=== PATIENT | male | born 1955 ===

== ENCOUNTER 2017-01-26 09:06 | Emergency (ER) | payer MEDICAID ==
[2017-01-26 09:06] VITALS: BMI 26.6
[2017-01-26 09:14] VITALS: BP 117/70; PULSE 75; RESP 18; TEMP 97.9; O2SAT 96
--- NOTE | 2017-01-26 10:16 | ED PDOC ---
HPI: CCC, URI, Sore Throat Time Seen by Provider: 01/26/17 09:31 Chief Complaint (Nursing): ENT Problem History Per: Patient History/Exam Limitations: no limitations Onset/Duration Of Symptoms: Gradual (3 days) Current Symptoms Are (Timing): Still Present Location Of Pain: Ear(s), Throat. denies: Sinus/es, Diffuse Myalgias, Headache Sick Contacts (Context): None Associated Symptoms: Fever, Sore Throat, Cough. denies: Chills, Sputum, Sinus Drainage, Myalgias, Nasal Congestion, Nausea, Vomiting, Diarrhea Ear Symptoms: Bilateral: None, Ear Pain, Ear Fullness Severity: Mild Additional History Per: Patient Additional Complaint(s): cd4 > 500. no travel or sick contacts. Past Medical History Reviewed: Historical Data, Nursing Documentation, Vital Signs Vital Signs: Last Vital Signs Temp 97.9 F 01/26/17 09:13 Pulse 75 01/26/17 09:13 Resp 18 01/26/17 09:13 BP 117/70 01/26/17 09:13 Pulse Ox 96 01/26/17 10:16 - Medical History PMH: Diabetes, Fractures (right leg 20 yrs ago), Gall Bladder Disease (hx gallstones cholecystectomy), HIV Denies: Chronic Kidney Disease - Surgical History Surgical History: Appendectomy, Cholecystectomy, Endoscopy - Family History Family History: States: Unknown Family Hx - Living Arrangements Living Arrangements: With Family - Social History Current smoker - smoking cessation education provided: No Drugs: Denies - Home Medications Home Medications: Ambulatory Orders Medication Instructions Recorded Emtricitabine/Tenofovir [Truvada 1 tab PO DAILY 07/24/14 200 mg-300 mg] Metformin HCl [Glucophage] 500 mg PO BID 07/24/14 Raltegravir Potassium [Isentress] 400 mg PO BID 07/24/14 Oxycodone HCl/Acetaminophen 5 - 325 mg PO Q4 PRN 07/30/14 [Percocet 325 mg-5 mg] Emtricitabine/Tenofovir Diso 1 tab PO DAILY 09/25/14 [Truvada 200 MG-300 MG] Metformin HCl [Glucophage] 500 mg PO TID 09/25/14 Raltegravir Potassium [Isentress] 400 mg PO BID 09/25/14 Naproxen [Naprosyn] 500 mg PO BID #20 tab 03/06/15 Amoxicillin/Clavulanate [Augmentin 1 tab PO BID #20 tab 01/26/17 875 MG-125 MG] Repaglinide [Prandin] 2 mg PO BID 01/26/17 - Allergies Allergies/Adverse Reactions: Allergies Allergy/AdvReac Type Severity Reaction Status Date / Time No Known Allergies Allergy Verified 01/26/17 09:25 Review of Systems ROS Statement: Except As Marked, All Systems Reviewed And Found Negative Constitutional: Negative for: Fever, Chills Eyes: Negative for: Pain ENT: Positive for: Ear Pain, Throat Pain. Negative for: Mouth Pain, Mouth Swelling, Throat Swelling Cardiovascular: Negative for: Chest Pain, Palpitations Respiratory: Positive for: Cough. Negative for: Shortness of Breath, SOB with Exertion, Pleuritic Pain, Sputum, Wheezing Gastrointestinal: Negative for: Nausea, Vomiting, Abdominal Pain, Diarrhea Genitourinary Male: Negative for: Dysuria Musculoskeletal: Negative for: Neck Pain Skin: Negative for: Rash Neurological: Negative for: Weakness, Numbness, Altered Mental Status, Headache , Dizziness Physical Exam - Reviewed Nursing Documentation Reviewed: Yes Vital Signs Reviewed: Yes - Physical Exam Appears: Positive for: Uncomfortable Head Exam: Positive for: ATRAUMATIC, NORMAL INSPECTION, NORMOCEPHALIC Eye Exam: Positive for: Normal appearance, EOMI, PERRL. Negative for: Periorbital swelling, Periorbital tenderness, Conjunctival injection, Scleral icterus ENT: Positive for: Pharynx Is (mmm), TM Is/Are (right tm with mild erythema), Nasal Congestion, Pharyngeal Erythema. Negative for: Tonsillar Exudate, Tonsillar Swelling Neck: Positive for: Normal, Painless ROM, Supple. Negative for: Decreased ROM, Limited ROM, Trachea Midline, Pain On Movement Of Neck Cardiovascular/Chest: Positive for: Regular Rate, Rhythm, Chest Non Tender. Negative for: Edema, Gallop, Murmur, Bradycardia, Tachycardia, Ectopy, Friction Rub, Irregularly Irregular Respiratory: Positive for: Normal Breath Sounds. Negative for: Decreased Breath Sounds, Accessory Muscle Use, Crackles, Rales, Rhonchi, Stridor, Wheezing , Respiratory Distress, Plerual Rub Pulses-Radial (L): 2+ Pulses-Radial (R): 2+ Gastrointestinal/Abdominal: Positive for: Normal Exam, Bowel Sounds, Soft. Negative for: Tenderness Back: Positive for: Normal Inspection. Negative for: L CVA Tenderness, R CVA Tenderness, Vertebral Tenderness, Decreased ROM, Muscle Spasm Extremity: Positive for: Normal ROM. Negative for: Tenderness, Pedal Edema, Calf Tenderness, Capillary Refill, Deformity, Swelling Neurologic/Psych: Positive for: Alert, l d rn II-XII, Oriented, Mood/Affect (calm) , Gait (steady). Negative for: Motor/Sensory Deficits, Aphasia, Facial Droop - ECG O2 Sat by Pulse Oximetry: 96 Pulse Ox Interpretation: Normal - Radiology X-Ray: Interpreted by [facility] X-Ray Interpretation: No Acute Disease - Progress ED Course And Treament: advise augmentin. close f/u in medical clinic. Re-evaluation Time: 10:42 Condition: Improved Disposition - Clinical Impression Clinical Impression: Pharyngitis - Patient ED Disposition Is Patient to be Admitted: No Counseled Patient/Family Regarding: Studies Performed, Diagnosis, Need For Followup, Rx Given - Disposition Referrals: [facility] [place] [Outside] (2 to 3 days) Disposition: Routine/Home Disposition Time: 10:15 Condition: GOOD Prescriptions: Amoxicillin/Clavulanate [Augmentin 875 MG-125 MG] 1 tab PO BID #20 tab Instructions: Pharyngitis (ED) Forms: [employer] (Ukrainian) Print Language: ICELANDIC
[2017-01-26] MEDS ORDERED: Amoxicillin-Clav 875-125 mg Tab PO STA (10:40)
[2017-01-26] MEDS ORDERED: Amoxicillin-Clav 250-125 mg Tab PO ONE (10:57)
[2017-01-26] MEDS ORDERED: Amoxicillin-Clav 875-125 mg Tab PO ONE (10:58)
--- NOTE | 2017-01-26 11:49 | RAD ---
HISTORY: cough COMPARISON: July 24, 2014. TECHNIQUE: Chest PA and lateral FINDINGS: LUNGS: Hyperinflation, manifestations of COPD. No active pulmonary disease. PLEURA: No significant pleural effusion identified. No pneumothorax apparent. CARDIOVASCULAR: No radiographic findings to suggest acute or significant cardiovascular disease. OSSEOUS STRUCTURES: No significant abnormalities. VISUALIZED UPPER ABDOMEN: Normal. OTHER FINDINGS: None. IMPRESSION: No active disease. No significant interval change compared to the prior examination(s). Concordant results with the preliminary interpretation rendered by the emergency department physician procedure.
== END 2017-01-26 11:05 | disposition home or self-care (01) ==
LOC: H.ER 09:06
DX: J02.9 Acute pharyngitis, unspecified (principal); E11.9 Type 2 diabetes mellitus without complications

== ENCOUNTER 2017-04-13 14:15 | Emergency (ER) | payer MEDICAID, OTHER ==
[2017-04-13 14:16] VITALS: BMI 26.6
[2017-04-13 14:29] VITALS: BP 130/90; PULSE 84; RESP 18; TEMP 98.2; O2SAT 99
--- NOTE | 2017-04-13 15:03 | ED PDOC ---
HPI: General Adult Time Seen by Provider: 04/13/17 14:32 Chief Complaint (Nursing): Finger,Hand,&Wrist History Per: Patient Additional Complaint(s): Pt. states for the past 4 weeks he's had a swelling to the R palm. Today he attempted to drain the area but was unsuccessful and was unable to drain any pus. Denies trauma, fever, numbness, tingling. Past Medical History Reviewed: Historical Data, Nursing Documentation, Vital Signs Vital Signs: Last Vital Signs Temp 98.2 F 04/13/17 14:26 Pulse 84 04/13/17 14:26 Resp 18 04/13/17 14:26 BP 130/90 04/13/17 14:26 Pulse Ox 99 04/13/17 15:05 - Medical History PMH: Diabetes, Fractures (right leg 20 yrs ago), Gall Bladder Disease (hx gallstones cholecystectomy), HIV Denies: Chronic Kidney Disease - Surgical History Surgical History: Appendectomy, Cholecystectomy, Endoscopy - Family History Family History: States: No Known Family Hx - Home Medications Home Medications: Ambulatory Orders Medication Instructions Recorded Emtricitabine/Tenofovir [Truvada 1 tab PO DAILY 07/24/14 200 mg-300 mg] Metformin HCl [Glucophage] 500 mg PO BID 07/24/14 Raltegravir Potassium [Isentress] 400 mg PO BID 07/24/14 Oxycodone HCl/Acetaminophen 5 - 325 mg PO Q4 PRN 07/30/14 [Percocet 325 mg-5 mg] Emtricitabine/Tenofovir Diso 1 tab PO DAILY 09/25/14 [Truvada 200 MG-300 MG] Metformin HCl [Glucophage] 500 mg PO TID 09/25/14 Raltegravir Potassium [Isentress] 400 mg PO BID 09/25/14 Naproxen [Naprosyn] 500 mg PO BID #20 tab 03/06/15 Amoxicillin/Clavulanate [Augmentin 1 tab PO BID #20 tab 01/26/17 875 MG-125 MG] Repaglinide [Prandin] 2 mg PO BID 01/26/17 Cephalexin [cephalexin] 500 mg PO Q6 #28 cap 04/13/17 Meloxicam [Mobic] 1 - 2 tab PO DAILY PRN #15 tab 04/13/17 - Allergies Allergies/Adverse Reactions: Allergies Allergy/AdvReac Type Severity Reaction Status Date / Time No Known Allergies Allergy Verified 01/26/17 09:25 Review of Systems ROS Statement: Except As Marked, All Systems Reviewed And Found Negative Physical Exam - Physical Exam Appears: Positive for: Well, Non-toxic, No Acute Distress Skin: Positive for: Normal Color, Warm. Negative for: Rash Pulses-Radial (L): 2+ Pulses-Radial (R): 2+ Extremity: Positive for: Other (mild swelling but no tenderness, erythema, warmth, or break in skin integrity of R 5th MCP on palmar surface; cap refill < 2 seconds of R 5th digit; FROM actively of R 5th digit; no fluctuance or induration; swelling is mobile) Neurologic/Psych: Positive for: Alert, Oriented - ECG O2 Sat by Pulse Oximetry: 99 - Radiology X-Ray: Interpreted by Me (R Hand x-ray) X-Ray Interpretation: No Acute Disease - Progress ED Course And Treament: R hand x-ray: Disposition - Clinical Impression Clinical Impression: Ganglion cyst - Patient ED Disposition Is Patient to be Admitted: No - Disposition Referrals: Patricia Gan MD [Staff Provider] - Disposition: Routine/Home Disposition Time: 15:41 Condition: STABLE Prescriptions: Cephalexin [cephalexin] 500 mg PO Q6 #28 cap Meloxicam [Mobic] 1 - 2 tab PO DAILY PRN #15 tab PRN Reason: Pain Instructions: Cyst (ED) Forms: [employer] (Paraguayan)
--- NOTE | 2017-04-13 15:15 | RAD ---
PROCEDURE: Right Hand Radiographs. HISTORY: swelling COMPARISON: None. FINDINGS: BONES: Normal. No fracture. JOINTS: Normal. No osteoarthritic changes. SOFT TISSUES: Normal. OTHER FINDINGS: None. IMPRESSION: Unremarkable right hand radiographs.
== END 2017-04-13 16:02 | disposition home or self-care (01) ==
LOC: H.ER 14:15
DX: M67.441 Ganglion, right hand (principal)

== ENCOUNTER 2017-07-17 14:22 | Emergency (ER) | payer OTHER ==
[2017-07-17 14:22] VITALS: BMI 26.6
[2017-07-17 14:56] VITALS: BP 118/73; PULSE 78; RESP 18; TEMP 97; O2SAT 97
--- NOTE | 2017-07-17 15:31 | ED PDOC ---
Upper Extremity Pain/Injury Time Seen by Provider: 07/17/17 14:58 Chief Complaint (Nursing): Finger,Hand,&Wrist Chief Complaint (Provider): Finger,Hand,&Wrist History Per: Patient History/Exam Limitations: no limitations Onset/Duration Of Symptoms: Mins (prior to arrival) Current Symptoms Are (Timing): Still Present Additional Complaint(s): 62 year old male with medical history of HIV and diabetes, who presents to the emergemcy department for an evaluation of laceration to left wrist status post applying sheet rock at home prior to arrival. Denied any numbness, weakness or up-to-date tetanus vaccinations. PMD: none provided Past Medical History Reviewed: Historical Data, Nursing Documentation, Vital Signs Vital Signs: Last Vital Signs Temp 97 F L 07/17/17 14:53 Pulse 78 07/17/17 14:53 Resp 18 07/17/17 14:53 BP 118/73 07/17/17 14:53 Pulse Ox 97 07/17/17 14:53 - Medical History PMH: Diabetes, Fractures (right leg 20 yrs ago), Gall Bladder Disease (hx gallstones cholecystectomy), HIV Denies: No Chronic Diseases, Chronic Kidney Disease - Surgical History Surgical History: Appendectomy, Cholecystectomy, Endoscopy Denies: No Surg Hx - Family History Family History: States: Unknown Family Hx - Social History Current smoker - smoking cessation education provided: No Alcohol: Occasional Drugs: Denies - Home Medications Home Medications: Ambulatory Orders Medication Instructions Recorded Emtricitabine/Tenofovir [Truvada 1 tab PO DAILY 07/24/14 200 mg-300 mg] Metformin HCl [Glucophage] 500 mg PO BID 07/24/14 Raltegravir Potassium [Isentress] 400 mg PO BID 07/24/14 Oxycodone HCl/Acetaminophen 5 - 325 mg PO Q4 PRN 07/30/14 [Percocet 325 mg-5 mg] Emtricitabine/Tenofovir Diso 1 tab PO DAILY 09/25/14 [Truvada 200 MG-300 MG] Metformin HCl [Glucophage] 500 mg PO TID 09/25/14 Raltegravir Potassium [Isentress] 400 mg PO BID 09/25/14 Naproxen [Naprosyn] 500 mg PO BID #20 tab 03/06/15 Amoxicillin/Clavulanate [Augmentin 1 tab PO BID #20 tab 01/26/17 875 MG-125 MG] Repaglinide [Prandin] 2 mg PO BID 01/26/17 Cephalexin [cephalexin] 500 mg PO Q6 #28 cap 04/13/17 Meloxicam [Mobic] 1 - 2 tab PO DAILY PRN #15 tab 04/13/17 - Allergies Allergies/Adverse Reactions: Allergies Allergy/AdvReac Type Severity Reaction Status Date / Time No Known Allergies Allergy Verified 01/26/17 09:25 Review of Systems ROS Statement: Except As Marked, All Systems Reviewed And Found Negative Musculoskeletal: Positive for: Other (left wrist laceration) Neurological: Negative for: Weakness (left hand), Numbness (left hand) Physical Exam - Reviewed Nursing Documentation Reviewed: Yes Vital Signs Reviewed: Yes - Physical Exam Appears: Positive for: Well, Non-toxic, No Acute Distress Skin: Positive for: Normal Color, Warm, Dry. Negative for: Rash Pulses-Radial (L): 2+ Pulses-Radial (R): 2+ Extremity: Positive for: Normal ROM (left hand), Capillary Refill (normal), Other (1cm superficial vertical laceration to ulnar aspect of left wrist). Negative for: Tenderness, Swelling Neurologic/Psych: Positive for: Alert (x3), java user interface developer II-XII (intact), Oriented. Negative for: Motor/Sensory Deficits - ECG O2 Sat by Pulse Oximetry: 97 (RA) Pulse Ox Interpretation: Normal Medical Decision Making Medical Decision Making: Initial Impression: Left wrist laceration Initial Plan: * Adacel 0.5ml IM Scribe Attestation: Documented by Rubi Coronado, acting as a scribe for Tiffanie Schafer PA-C. Provider Scribe Attestation: All medical record entries made by the Scribe were at my direction and personally dictated by me. I have reviewed the chart and agree that the record accurately reflects my personal performance of the history, physical exam, medical decision making, and the department course for this patient. I have also personally directed, reviewed, and agree with the discharge instructions and disposition. Procedures - Laceration/Wound Repair Left Wrist Wound Length (cm): 1 Wound's Depth, Shape: superficial Wound Explored: clean Irrigated w/ Saline (ccs): 50 Wound Repaired With: Skin adhesive Wound Complexity: Simple Progress: Patient tolerated the procedure well, clean dressing applied to wound. Disposition - Clinical Impression Clinical Impression: Laceration of wrist, left - Patient ED Disposition Is Patient to be Admitted: No Counseled Patient/Family Regarding: Diagnosis, Need For Followup - Disposition Disposition: Routine/Home Disposition Time: 15:30 Condition: STABLE Additional Instructions: Thank you for letting us take care of you today. You were treated for L wrist laceration. The emergency medical care you received today was directed at your acute symptoms. Return to the Emergency Department if your symptoms worsen, do not improve, or if you have any other problems. Please contact your doctor in 2 days for re-evaluation and follow up. Bring any paperwork you were given at discharge with you along with any medications you are taking to your follow up visit. Our treatment cannot replace ongoing medical care by a primary care provider (PCP) outside of the emergency department. Thank you for allowing the [facility] team to be part of your care today. Instructions: Laceration (ED), Skin Adhesive Care (ED) Forms: [employer] (Macedonian), [facility] ED School/Work Excuse
== END 2017-07-17 15:57 | disposition home or self-care (01) ==
LOC: H.ER 14:22
DX: S61.512A Laceration without foreign body of left wrist, initial encounter (principal); W26.0XXA Contact with knife, initial encounter; Y92.89 Other specified places as the place of occurrence of the external cause; E11.9 Type 2 diabetes mellitus without complications; Z90.49 Acquired absence of other specified parts of digestive tract; B20 Human immunodeficiency virus [HIV] disease

== ENCOUNTER 2017-07-27 10:00 | Emergency (ER) | payer OTHER ==
[2017-07-27 10:06] VITALS: BMI 25.8
--- NOTE | 2017-07-27 10:39 | ED PDOC ---
HPI: General Adult Time Seen by Provider: 07/27/17 10:38 Chief Complaint (Nursing): Flu-like Symptoms Chief Complaint (Provider): flu like symptoms History Per: Patient Additional Complaint(s): 62-year-old male presents to emergency department with body aches, fever, chills , cough and chest pain certainly yesterday. Patient has decreased appetite but denies vomiting or diarrhea. He has been taking Tylenol which has provided minimal relief. PMD: Dr Daniels Past Medical History Reviewed: Historical Data, Nursing Documentation, Vital Signs Vital Signs: Last Vital Signs Temp 98.2 F 07/27/17 14:00 Pulse 74 07/27/17 14:00 Resp 16 07/27/17 14:00 BP 99/57 L 07/27/17 14:00 Pulse Ox 98 07/27/17 14:10 - Medical History PMH: Diabetes, HIV, Chronic Kidney Disease - Surgical History Surgical History: Appendectomy, Cholecystectomy, Endoscopy Other surgeries: left leg surgery, eye surgery - Family History Family History: States: No Known Family Hx - Living Arrangements Living Arrangements: With Family - Social History Current smoker - smoking cessation education provided: No Alcohol: None Drugs: Denies - Home Medications Home Medications: Ambulatory Orders Medication Instructions Recorded Emtricitabine/Tenofovir [Truvada 1 tab PO DAILY 07/24/14 200 mg-300 mg] Metformin HCl [Glucophage] 500 mg PO BID 07/24/14 Raltegravir Potassium [Isentress] 400 mg PO BID 07/24/14 Oxycodone HCl/Acetaminophen 5 - 325 mg PO Q4 PRN 07/30/14 [Percocet 325 mg-5 mg] Emtricitabine/Tenofovir Diso 1 tab PO DAILY 09/25/14 [Truvada 200 MG-300 MG] Metformin HCl [Glucophage] 500 mg PO TID 09/25/14 Raltegravir Potassium [Isentress] 400 mg PO BID 09/25/14 Naproxen [Naprosyn] 500 mg PO BID #20 tab 03/06/15 Amoxicillin/Clavulanate [Augmentin 1 tab PO BID #20 tab 01/26/17 875 MG-125 MG] Repaglinide [Prandin] 2 mg PO BID 01/26/17 Cephalexin [cephalexin] 500 mg PO Q6 #28 cap 04/13/17 Meloxicam [Mobic] 1 - 2 tab PO DAILY PRN #15 tab 04/13/17 Albuterol HFA [Ventolin HFA 90 1 puff IH ASDIR #1 unit 07/27/17 mcg/actuation (8 g)] Benzonatate 200 mg PO TID PRN #20 capsule 07/27/17 Levofloxacin [Levaquin] 500 mg PO DAILY #7 tablet 07/27/17 Oseltamivir Phosphate [Tamiflu] 75 mg PO BID #10 capsule 07/27/17 - Allergies Allergies/Adverse Reactions: Allergies Allergy/AdvReac Type Severity Reaction Status Date / Time No Known Allergies Allergy Verified 01/26/17 09:25 Review of Systems ROS Statement: Except As Marked, All Systems Reviewed And Found Negative Constitutional: Positive for: Fever, Chills, Other (body aches) Cardiovascular: Positive for: Chest Pain Respiratory: Positive for: Cough, Shortness of Breath. Negative for: Wheezing Gastrointestinal: Negative for: Nausea, Vomiting Neurological: Positive for: Headache Physical Exam - Reviewed Nursing Documentation Reviewed: Yes Vital Signs Reviewed: Yes - Physical Exam Appears: Positive for: Well, Non-toxic, No Acute Distress Skin: Negative for: Rash Eye Exam: Positive for: Normal appearance ENT: Positive for: Pharyngeal Erythema. Negative for: Nasal Congestion Cardiovascular/Chest: Positive for: Regular Rate, Rhythm Respiratory: Positive for: Normal Breath Sounds. Negative for: Wheezing, Respiratory Distress Gastrointestinal/Abdominal: Positive for: Soft. Negative for: Tenderness Extremity: Positive for: Normal ROM Neurologic/Psych: Positive for: Alert, Oriented - Laboratory Results Result Diagrams: 07/27/17 11:40 07/27/17 11:40 - ECG Interpretation Of ECG: NSR 82 bpm, no acute finding, reviewed by medical technical writer and ED attending O2 Sat by Pulse Oximetry: 98 Pulse Ox Interpretation: Normal - Other Rad CXR X-Ray: Interpreted by Me, Viewed By Me X-Ray Interpretation: see below Medical Decision Making Medical Decision Makin62 year old with flu like symptoms Plan: CBC CMP Blood cultures VBG Flu swab Rapid strep CXR PO tylenol and motrin IVF CXR: IMPRESSION:Minor bibasilar atelectasis [id number]. Developing lower lobe infiltrate could be excluded with followup radiographs. Flu A is positive. Patient feels much better after medications given in ED. Patient is aware of all diagnostic test results, all questions answered. Prescriptions given for Tamiflu, Levaquin, Tessalon Perles and Ventolin inhaler. Advised NSAIDs for fever control, rest, fluids and follow-up with primary doctor in 2-3 days. Patient is aware he can return to emergency department any time if acutely worse. Vital signs stable prior to d/c. Disposition - Clinical Impression Clinical Impression: Influenza, Pneumonia - Patient ED Disposition Is Patient to be Admitted: No Counseled Patient/Family Regarding: Studies Performed, Diagnosis, Rx Given - Disposition Referrals: Jose Miguel Daniels MD [Family Provider] - Disposition: Routine/Home Disposition Time: 13:50 Condition: STABLE Additional Instructions: Take prescription meds as directed. Alternate tylenol every 4 hrs and motrin every 6 hrs for fever control. Rest and drink plenty of fluids. Follow up with primary care doctor in 2-3 days or return to ED at any time if acutely worse. Prescriptions: Albuterol HFA [Ventolin HFA 90 mcg/actuation (8 g)] 1 puff IH ASDIR #1 unit Benzonatate 200 mg PO TID PRN #20 capsule PRN Reason: Cough Levofloxacin [Levaquin] 500 mg PO DAILY #7 tablet Oseltamivir Phosphate [Tamiflu] 75 mg PO BID #10 capsule Instructions: Influenza (ED), Community Acquired Pneumonia (ED) Forms: [facility] (Kinyarwanda) Results - Lab Results Lab Results: 07/27/17 07/27/17 07/27/17 11:40 11:40 11:40 WBC RBC Hgb Hct MCV MCH MCHC RDW Plt Count MPV Neut % (Auto) Lymph % (Auto) Callahan % (Auto) Eos % (Auto) Baso % (Auto) Neut # (Auto) Lymph # (Auto) Callahan # (Auto) Eos # (Auto) Baso # (Auto) pO2 VBG pH VBG pCO2 VBG HCO3 VBG Total CO2 VBG O2 Sat (Calc) VBG Base Excess VBG Potassium Sodium 139 Chloride 99 Glucose Lactate FiO2 Potassium 4.1 Carbon Dioxide 27 Anion Gap 17 BUN 13 Creatinine 1.0 Est GFR ( Amer) > 60 Est GFR (Non-Af Amer) > 60 Random Glucose 144 H Calcium 9.0 Total Bilirubin 0.7 AST 38 ALT 73 H Alkaline Phosphatase 59 Total Protein 8.1 Albumin 4.4 Globulin 3.7 Albumin/Globulin Ratio 1.2 Venous Blood Potassium Influenza Typ A,B (EIA) Pos for influenza a H Grp A Beta Strep Ag Negative 07/27/17 07/27/17 11:40 11:09 WBC 5.6 RBC 4.99 Hgb 16.1 Hct 46.6 MCV 93.3 D MCH 32.3 H MCHC 34.6 RDW 12.8 Plt Count 97 L D MPV 10.3 Neut % (Auto) 71.8 Lymph % (Auto) 11.6 L Callahan % (Auto) 15.6 H Eos % (Auto) 0.6 Baso % (Auto) 0.4 Neut # (Auto) 4.1 Lymph # (Auto) 0.7 L Callahan # (Auto) 0.9 H Eos # (Auto) 0.0 Baso # (Auto) 0.0 pO2 31 VBG pH 7.38 VBG pCO2 43 VBG HCO3 23.9 VBG Total CO2 26.7 VBG O2 Sat (Calc) 70.7 H VBG Base Excess 0.0 VBG Potassium 4.3 Sodium 133.0 Chloride 101.0 Glucose 140 H Lactate 1.5 FiO2 21.0 Potassium Carbon Dioxide Anion Gap BUN Creatinine Est GFR ( Amer) Est GFR (Non-Af Amer) Random Glucose Calcium Total Bilirubin AST ALT Alkaline Phosphatase Total Protein Albumin Globulin Albumin/Globulin Ratio Venous Blood Potassium 4.3 Influenza Typ A,B (EIA) Grp A Beta Strep Ag
[2017-07-27] MEDS ORDERED: Sodium Chloride 0.9% 1,000 ML IV STA (11:00)
[2017-07-27 11:57] LABS: VENOUS BLOOD GAS PCO2 43 mmHg (40-60); VENOUS BLOOD GAS PO2 31 mm/Hg (30-55); VENOUS BLOOD PH 7.38 (7.32-7.43)
[2017-07-27 12:15] LABS: BASO % 0.4 % (0.0-2.0); EOS % 0.6 % (0.0-4.0); HEMOGLOBIN 16.1 g/dL (12.0-18.0); LYMPH # 0.7 K/uL (1.0-4.3); LYMPH % 11.6 % (20.0-40.0); MEAN CORPUSCULAR HEMOGLOBIN 32.3 pg (27.0-31.0); MEAN CORPUSCULAR HGB CONC 34.6 g/dL (33.0-37.0); MEAN PLATELET VOLUME 10.3 fl (7.2-11.7); MONO # 0.9 K/uL (0.0-0.8); MONO % 15.6 % (0.0-10.0); NEUT # 4.1 K/uL (1.8-7.0); NEUT % 71.8 % (50.0-75.0); NRBC % 0.1 % (0.0-0.0); RBC 4.99 Mil/uL (4.40-5.90); RED CELL DISTRIBUTION WIDTH 12.8 % (11.5-14.5); WHITE BLOOD COUNT 5.6 K/uL (4.8-10.8)
[2017-07-27 12:17] LABS: MEAN CELL VOLUME 93.3 fl (80.0-94.0)
[2017-07-27 12:23] LABS: ALB/GLOB RATIO 1.2 (1.0-2.1); ALBUMIN 4.4 g/dL (3.5-5.0); ALT/SGPT 73 U/L (21-72); AST/SGOT 38 U/L (17-59); BLOOD UREA NITROGEN 13 mg/dl (9-20); GFR AFRICAN-AMERICAN > 60; GFR NON-AFRICAN AMERICAN > 60
--- NOTE | 2017-07-27 12:24 | RAD ---
HISTORY: fever COMPARISON: Rodriguez chest dated 01/26/2017 FINDINGS: LUNGS: Minor bibasilar atelectasis left greater than right. . Rule out developing lower lobe infiltrate with followup radiographs PLEURA: No significant pleural effusion identified, no pneumothorax apparent. CARDIOVASCULAR: Normal. OSSEOUS STRUCTURES: No significant abnormalities. VISUALIZED UPPER ABDOMEN: Normal. OTHER FINDINGS: None. IMPRESSION: Minor bibasilar atelectasis [id number]. Developing lower lobe infiltrate could be excluded with followup radiographs
--- NOTE | 2017-07-27 13:06 | CARD ---
APPROVED REPORT EKG Measurement Heart [id number] <Conclusion> Normal sinus rhythm Normal ECG
[2017-07-27 14:01] VITALS: BP 99/57; PULSE 74; RESP 16; TEMP 98.2
[2017-07-27 14:10] VITALS: O2SAT 98
== END 2017-07-27 14:10 | disposition home or self-care (01) ==
LOC: H.ER 10:00
DX: J11.00 Influenza due to unidentified influenza virus with unspecified type of pneumonia (principal); N18.9 Chronic kidney disease, unspecified
CPT/HCPCS: 71045; 80053; 82803; 85025; 87040; 87070; 87430; 87804; 93005; 96360; 99282; J7040

== ENCOUNTER 2017-12-24 08:22 | Emergency (ER) | payer OTHER ==
[2017-12-24 08:31] VITALS: BMI 28.2
[2017-12-24 09:01] VITALS: RESP 18
--- NOTE | 2017-12-24 10:19 | ED PDOC ---
HPI: Skin/Bite Injury Time Seen by Provider: 12/24/17 09:09 Chief Complaint (Nursing): Abnormal Skin Integrity Chief Complaint (Provider): Abnormal Skin Integrity History Per: Patient History/Exam Limitations: no limitations Onset/Duration Of Symptoms: Days (1) Quality Of Symptoms: Itching, Swollen Additional Complaint(s): 62 years old male with history of HIV presents to the ED for evaluation of diffused rash on his body except for his face onset yesterday shortly after he ate 2 cherries. Patient reports rash is red, spotty and itchy. He states he took Benadryl yesterday and today with minimal relief and reports he is on HIV medications everyday. Patient denies any swelling, bleeding, vomiting or diarrhea. PMD: Jose Miguel Daniels Past Medical History Reviewed: Historical Data, Nursing Documentation, Vital Signs Vital Signs: Last Vital Signs Temp 97.6 F 12/24/17 08:31 Pulse 68 12/24/17 08:56 Resp 18 12/24/17 08:56 BP 90/63 L 12/24/17 08:31 Pulse Ox 97 12/24/17 10:32 - Medical History PMH: Diabetes, Fractures (right leg 20 yrs ago), Gall Bladder Disease (hx gallstones cholecystectomy), HIV, Chronic Kidney Disease - Surgical History Surgical History: Appendectomy, Cholecystectomy, Endoscopy - Family History Family History: States: Unknown Family Hx - Social History Current smoker - smoking cessation education provided: No Alcohol: None Drugs: Denies - Home Medications Home Medications: Ambulatory Orders Medication Instructions Recorded Emtricitabine/Tenofovir [Truvada 1 tab PO DAILY 07/24/14 200 mg-300 mg] Metformin HCl [Glucophage] 500 mg PO BID 07/24/14 Raltegravir Potassium [Isentress] 400 mg PO BID 07/24/14 Oxycodone HCl/Acetaminophen 5 - 325 mg PO Q4 PRN 07/30/14 [Percocet 325 mg-5 mg] Emtricitabine/Tenofovir Diso 1 tab PO DAILY 09/25/14 [Truvada 200 MG-300 MG] Metformin HCl [Glucophage] 500 mg PO TID 09/25/14 Raltegravir Potassium [Isentress] 400 mg PO BID 09/25/14 Naproxen [Naprosyn] 500 mg PO BID #20 tab 03/06/15 Amoxicillin/Clavulanate [Augmentin 1 tab PO BID #20 tab 01/26/17 875 MG-125 MG] Repaglinide [Prandin] 2 mg PO BID 01/26/17 Cephalexin [cephalexin] 500 mg PO Q6 #28 cap 04/13/17 Meloxicam [Mobic] 1 - 2 tab PO DAILY PRN #15 tab 04/13/17 Albuterol HFA [Ventolin HFA 90 1 puff IH ASDIR #1 unit 07/27/17 mcg/actuation (8 g)] Benzonatate 200 mg PO TID PRN #20 capsule 07/27/17 Levofloxacin [Levaquin] 500 mg PO DAILY #7 tablet 07/27/17 Oseltamivir Phosphate [Tamiflu] 75 mg PO BID #10 capsule 07/27/17 Prednisone 50 mg PO DAILY #5 tablet 12/24/17 - Allergies Allergies/Adverse Reactions: Allergies Allergy/AdvReac Type Severity Reaction Status Date / Time No Known Allergies Allergy Verified 01/26/17 09:25 Review of Systems ROS Statement: Except As Marked, All Systems Reviewed And Found Negative Gastrointestinal: Negative for: Vomiting, Diarrhea Skin: Positive for: Rash (Diffused). Negative for: Other (Swelling or bleeding) Physical Exam - Reviewed Nursing Documentation Reviewed: Yes Vital Signs Reviewed: Yes - Physical Exam Appears: Positive for: Non-toxic, No Acute Distress Skin: Positive for: Warm, Rash (Diffused (except face) with erythema urticaria hives) Eye Exam: Positive for: Normal appearance, EOMI, PERRL ENT: Positive for: Normal ENT Inspection Neck: Positive for: Normal Cardiovascular/Chest: Positive for: Regular Rate, Rhythm. Negative for: Murmur Respiratory: Positive for: Normal Breath Sounds. Negative for: Wheezing, Respiratory Distress Gastrointestinal/Abdominal: Positive for: Normal Exam, Soft. Negative for: Tenderness Back: Positive for: Normal Inspection Extremity: Positive for: Normal ROM. Negative for: Tenderness, Swelling Neurologic/Psych: Positive for: Alert, Oriented - ECG O2 Sat by Pulse Oximetry: 97 (RA) Pulse Ox Interpretation: Normal - Progress Re-evaluation Time: 10:32 Condition: Re-examined, Improved Medical Decision Making Medical Decision Making: Time: 920 Initial Impression: Allergic rash. Differential includes but not limited to urticaria Initial Plan: --Pepcid 20 mg PO --Tylenol 325 mg PO --PredniSONE 60 mg PO ----- Scribe Attestation: Documented by Christina Renteria, acting as a scribe for Kolby Larose MD. Provider Scribe Attestation: All medical record entries made by the Scribe were at my direction and personally dictated by me. I have reviewed the chart and agree that the record accurately reflects my personal performance of the history, physical exam, medical decision making, and the department course for this patient. I have also personally directed, reviewed, and agree with the discharge instructions and disposition. Disposition - Clinical Impression Clinical Impression: Urticaria - Patient ED Disposition Is Patient to be Admitted: No Doctor Will See Patient In The: Office Counseled Patient/Family Regarding: Studies Performed, Diagnosis, Need For Followup - Disposition Referrals: Jose Miguel Daniels MD [Family Provider] - Disposition: Routine/Home Disposition Time: 10:33 Condition: GOOD Additional Instructions: Take your medications as instructed. Take benadryl for itching every 6 hours. Follow up with your PCP in 2-3 days. Prescriptions: Prednisone 50 mg PO DAILY #5 tablet Instructions: Amanda Print Language: ZIMBABWEAN
[2017-12-24 11:02] VITALS: BP 118/69; PULSE 69; TEMP 97.8; O2SAT 98
== END 2017-12-24 10:58 | disposition home or self-care (01) ==
LOC: H.ER 08:22
DX: L50.9 Urticaria, unspecified (principal); Z21 Asymptomatic human immunodeficiency virus [HIV] infection status; Z90.49 Acquired absence of other specified parts of digestive tract

== ENCOUNTER 2018-05-08 22:00 | Emergency (ER) | payer SELFPAY ==
[2018-05-08 22:00] VITALS: BMI 28.2
[2018-05-08 22:17] VITALS: RESP 16
[2018-05-08] MEDS ORDERED: Sodium Chloride 0.9% 1,000 ML IV STA (23:07)
--- NOTE | 2018-05-08 23:11 | ED PDOC ---
HPI: General Adult Time Seen by Provider: 05/08/18 22:42 Chief Complaint (Nursing): Fever Chief Complaint (Provider): generalized weakness History Per: Patient History/Exam Limitations: no limitations Onset/Duration Of Symptoms: Days (weeks), Waxing/Waning Current Symptoms Are (Timing): Still Present Additional Complaint(s): 62 y/o male history of diabetes, HIV presents for evaluation of generalized weakness x 3 weeks with decreased appetite. Associated subjective fevers at night time for the last 3 days. Patient states "sometimes" he coughs, and "sometimes" he has a sore throat Denies fever, headache, dizziness, chest pain, shortness of breath, palpitations, abdominal pain, nausea/vomiting, changes in bowel movements, urinary symptoms, sick contacts. Patient states he started a new HIV medication in December and is unsure if could be related to his current symptoms Past Medical History Reviewed: Historical Data, Nursing Documentation, Vital Signs Vital Signs: Last Vital Signs Temp 98.4 F 05/08/18 22:16 Pulse 98 H 05/08/18 22:16 Resp 16 05/08/18 22:16 BP 131/80 05/08/18 22:16 Pulse Ox 98 05/08/18 22:16 - Medical History PMH: Diabetes, Fractures (right leg 20 yrs ago), Gall Bladder Disease (hx gallstones cholecystectomy), HIV, Chronic Kidney Disease - Surgical History Surgical History: Appendectomy, Cholecystectomy, Endoscopy - Family History Family History: States: Unknown Family Hx - Home Medications Home Medications: Ambulatory Orders Medication Instructions Recorded Emtricitabine/Tenofovir [Truvada 1 tab PO DAILY 07/24/14 200 mg-300 mg] Metformin HCl [Glucophage] 500 mg PO BID 07/24/14 Raltegravir Potassium [Isentress] 400 mg PO BID 07/24/14 Oxycodone HCl/Acetaminophen 5 - 325 mg PO Q4 PRN 07/30/14 [Percocet 325 mg-5 mg] Emtricitabine/Tenofovir Diso 1 tab PO DAILY 09/25/14 [Truvada 200 MG-300 MG] Metformin HCl [Glucophage] 500 mg PO TID 09/25/14 Raltegravir Potassium [Isentress] 400 mg PO BID 09/25/14 Naproxen [Naprosyn] 500 mg PO BID #20 tab 03/06/15 Amoxicillin/Clavulanate [Augmentin 1 tab PO BID #20 tab 01/26/17 875 MG-125 MG] Repaglinide [Prandin] 2 mg PO BID 01/26/17 Cephalexin [cephalexin] 500 mg PO Q6 #28 cap 04/13/17 Meloxicam [Mobic] 1 - 2 tab PO DAILY PRN #15 tab 04/13/17 Albuterol HFA [Ventolin HFA 90 1 puff IH ASDIR #1 unit 07/27/17 mcg/actuation (8 g)] Benzonatate 200 mg PO TID PRN #20 capsule 07/27/17 Levofloxacin [Levaquin] 500 mg PO DAILY #7 tablet 07/27/17 Oseltamivir Phosphate [Tamiflu] 75 mg PO BID #10 capsule 07/27/17 Prednisone 50 mg PO DAILY #5 tablet 12/24/17 - Allergies Allergies/Adverse Reactions: Allergies Allergy/AdvReac Type Severity Reaction Status Date / Time No Known Allergies Allergy Verified 01/26/17 09:25 Review of Systems ROS Statement: Except As Marked, All Systems Reviewed And Found Negative Constitutional: Positive for: Weakness ENT: Positive for: Throat Pain Respiratory: Positive for: Cough Physical Exam - Reviewed Nursing Documentation Reviewed: Yes Vital Signs Reviewed: Yes - Physical Exam Appears: Positive for: Well, Non-toxic, No Acute Distress Head Exam: Positive for: ATRAUMATIC, NORMAL INSPECTION, NORMOCEPHALIC Skin: Positive for: Normal Color Eye Exam: Positive for: Normal appearance ENT: Positive for: Normal ENT Inspection Cardiovascular/Chest: Positive for: Regular Rate, Rhythm Respiratory: Positive for: Normal Breath Sounds Gastrointestinal/Abdominal: Positive for: Bowel Sounds, Soft, Tenderness (left flank tenderness (patient states he has had "for months" now)) Back: Positive for: Normal Inspection Extremity: Positive for: Normal ROM Neurologic/Psych: Positive for: Alert, Oriented (x3) - Laboratory Results Result Diagrams: 05/08/18 23:52 05/08/18 23:52 - ECG ECG: Positive for: Viewed By Me (reviewed by ED attending) ECG Rhythm: Positive for: Sinus Rhythm O2 Sat by Pulse Oximetry: 98 - Radiology X-Ray: Viewed By Me X-Ray Interpretation: No Acute Disease - Progress ED Course And Treament: -cbc -cmp -influenza -rapid strep -urinalysis -cxr -CT renal protocol -IV NS bolus CT SCAN OF THE ABDOMEN AND PELVIS WITHOUT ORAL OR IV CONTRAST. CLINICAL INDICATION: Left flank pain. TECHNIQUE: Axial and reformatted sagittal and coronal images of the abdomen pelvis obtained without IV contrast administration. COMPARISON: 04/21/2014. FINDINGS: The visualized lung bases are unremarkable. Normal unenhanced liver. Surgically absent gallbladder and nondilated extrahepatic biliary system. Normal unenhanced spleen. Normal pancreas. Normal bilateral adrenal glands. Small sliding hiatal hernia. Normal size of the right kidney. There is no right renal mass. There are no right renal calculi. There is mild fullness of the right collecting system. Normal size of the left kidney. There is no left renal mass. There are no left renal calculi. There is mild fullness of the left collecting system. Normal visualized stomach. Normal small intestine. Uncomplicated diverticulosis of the colon. The appendix is surgically absent. There is no demonstrated peritoneal fluid. Normal abdominal aorta. Normal inferior vena cava. Normal retroperitoneum. Distended urinary bladder. There is no pelvic mass lesion or lymphadenopathy. There is no pelvic fluid. Normal abdominal wall. Normal osseous structures. IMPRESSION: Mild fullness of the collecting system secondary to distended bladder. No urolithiasis . Constipation. On re-eval, patient states he is feeling better. Vitals remain stable Patient educated on findings, discharged with instructions to follow up with PMD within 2-3 days Return precautions given Disposition - Clinical Impression Clinical Impression: Generalized weakness - Patient ED Disposition Is Patient to be Admitted: No Counseled Patient/Family Regarding: Studies Performed, Diagnosis, Need For Followup - Disposition Disposition: Routine/Home Disposition Time: 03:04 Condition: IMPROVED Instructions: Generalized Weakness Forms: [employer] (Chilean)
[2018-05-08 23:56] LABS: BASO % 0.8 % (0.0-2.0); EOS # 0.2 K/uL (0.0-0.7); EOS % 3.7 % (0.0-4.0); LYMPH % 16.6 % (20.0-40.0); MEAN CELL VOLUME 93.7 fl (80.0-94.0); MEAN CORPUSCULAR HEMOGLOBIN 32.1 pg (27.0-31.0); MEAN CORPUSCULAR HGB CONC 34.3 g/dL (33.0-37.0); MEAN PLATELET VOLUME 10.1 fl (7.2-11.7); MONO # 1.1 K/uL (0.0-0.8); MONO % 18.5 % (0.0-10.0); NEUT # 3.4 K/uL (1.8-7.0); NEUT % 60.4 % (50.0-75.0); NRBC % 0.1 % (0.0-0.0); RBC 4.37 Mil/uL (4.40-5.90); WHITE BLOOD COUNT 5.7 K/uL (4.8-10.8)
[2018-05-08 23:59] LABS: URINE BILIRUBIN NEGATIVE (NEGATIVE); URINE BLOOD SMALL (NEGATIVE); URINE CLARITY CLEAR (Clear); URINE COLOR STRAW (YELLOW); URINE GLUCOSE (UA) 50 mg/dL (Normal); URINE LEUKOCYTE ESTERASE NEG Leu/uL (Negative); URINE PROTEIN NEGATIVE (NEGATIVE); URINE UROBILINOGEN 0.2-1.0 mg/dL (0.2-1.0)
[2018-05-09 00:04] LABS: ALB/GLOB RATIO 1.1 (1.0-2.1); ALT/SGPT 54 U/L (21-72); AST/SGOT 22 U/L (17-59); BLOOD UREA NITROGEN 13 mg/dl (9-20); CALCIUM 9.1 mg/dL (8.4-10.2); GFR NON-AFRICAN AMERICAN > 60
[2018-05-09 02:43] VITALS: BP 111/84; PULSE 84; TEMP 99
[2018-05-09 02:46] VITALS: O2SAT 98
--- NOTE | 2018-05-09 06:56 | CARD ---
APPROVED REPORT Date of service: 05/08/2018 EKG Measurement Heart [id number] <Conclusion> Normal sinus rhythm Normal ECG
--- NOTE | 2018-05-09 09:00 | RAD ---
Date of service: 05/08/2018 HISTORY: Cough COMPARISON: 07/27/2017 TECHNIQUE: Chest PA and lateral FINDINGS: LINES AND TUBES: None. LUNG AND PLEURA: The lungs are hyperinflated and there is peribronchial thickening with chronic changes in both lungs. No focal consolidation. No pleural effusion or pneumothorax. HEART AND MEDIASTINUM: The heart is not enlarged. No aortic atherosclerotic calcification present. The hilar and mediastinal contours are within normal limits. SKELETAL STRUCTURES: The bony structures are within normal limits for the patient's age. VISUALIZED UPPER ABDOMEN: Normal. OTHER FINDINGS: None. IMPRESSION: No active pulmonary disease. COPD.
--- NOTE | 2018-05-09 12:53 | CT ---
Date of service: 05/09/2018 PROCEDURE: CT Abdomen and Pelvis without intravenous contrast HISTORY: left flank pain COMPARISON: None. TECHNIQUE: CT scan of the abdomen and pelvis was performed without administration of intravenous contrast. Oral contrast was not administered. Coronal and sagittal reformatted images were obtained. . Radiation dose: Total exam DLP = 430.72 mGy-cm. This CT exam was performed using one or more of the following dose reduction techniques: Automated exposure control, adjustment of the mA and/or kV according to patient size, and/or use of iterative reconstruction technique. FINDINGS: LOWER THORAX: The visualized lungs are clear. LIVER: Mild hepatomegaly. No intrahepatic ductal dilatation. GALLBLADDER AND BILE DUCTS: Likely absent. PANCREAS: Normal in size. No ductal dilatation. SPLEEN: Mild splenomegaly. ADRENALS: Normal in size. No discrete nodule. KIDNEYS AND URETERS: Normal in size without nephrolithiasis. No hydronephrosis. Nonspecific perinephric fat stranding. VASCULATURE: No aortic aneurysm. No aortic atherosclerotic calcification or mural plaque present. BOWEL: The small bowel loops are normal in caliber. The colon is normal in size. There is scattered colonic diverticulosis without CT evidence for acute diverticulitis. No bowel dilatation or wall thickening. No bowel obstruction. APPENDIX: Surgical absent. PERITONEUM: No free fluid. No free air. LYMPH NODES: No enlarged lymph nodes. BLADDER: Over distended and grossly normal in appearance. REPRODUCTIVE: The prostate gland is normal in size. BONES: No acute fracture. Old fracture deformity in the superior endplate of L2 vertebral body. OTHER FINDINGS: There is a small sliding hiatal hernia. IMPRESSION: No acute abdominal or pelvic abnormality. No evidence for nephrolithiasis, hydronephrosis or obstructive uropathy. Mild hepatosplenomegaly. Scattered colonic diverticulosis without CT evidence for acute diverticulitis.
== END 2018-05-09 03:36 | disposition home or self-care (01) ==
LOC: H.ER 22:00
DX: M62.81 Muscle weakness (generalized) (principal); E11.22 Type 2 diabetes mellitus with diabetic chronic kidney disease; J44.9 Chronic obstructive pulmonary disease, unspecified; B20 Human immunodeficiency virus [HIV] disease; K57.30 Diverticulosis of large intestine without perforation or abscess without bleeding
CPT/HCPCS: 71046; 74176; 80053; 81003; 85025; 87070; 87086; 87430; 87804; 93005; 99283; J7030